=== PATIENT | female | born 1935 | race Caucasian/White ===

== ENCOUNTER → 2017-04-26 | Outpatient (CLI) | payer SELFPAY ==
--- NOTE | 2017-04-26 14:50 | CT ---
HISTORY: Screening, hypertension Cardiac calcium scoring. Technique: Multiple axial images of the chest were obtained on a [address] from the aortic arch to the base of the heart with noncontrast prospective gating. AEC was utilized. Findings: A total calcium score of 1922 is observed. The score results in high likelihood of coronary events given the age and sex matched cohort analysis. Extensive atherosclerotic plaque is identified. The heart is enlarged with dense mitral valvular calcifications and trace pericardial fluid. The patient is between the 90 and 100 percentile for age and sex. There are nonspecific scattered ground-glass opacities and regions of interstitial thickening which could reflect subsegmental atelectasis or postinflammatory scarring without lobar mass or consolidat ion to suggest florid pulmonary edema or pneumonia. No suspicious pulmonary nodules are identified. There is thoracic spondylosis. IMPRESSION: Extensive atherosclerotic plaque is identified with a high likelihood of at least 1 significant Nandini nary narrowing. Reported By:
== END ==
LOC: RAD 13:22
PROVIDERS: ATTEND Internal Medicine
DX: Z13.6 Encounter for screening for cardiovascular disorders (principal)